=== PATIENT | female | born 1980 | race Hispanic/Latino ===

== ENCOUNTER 2022-10-27 12:14 | Inpatient (IN) | payer OTHER ==
[~2022-10-27] VITALS: Ht 170.2 cm; Wt 114.1 kg
[2022-10-27] MEDS ORDERED: DEXTROSE 5 %-0.45 % NACL 1,000 ML IV SCH (14:00)
[2022-10-27] MEDS ORDERED: HYDROMORPHONE 0.5 MG SYG (0.5MG/0.5ML) IVP PRN (14:00)
[2022-10-27 14:34] LABS: HEMATOCRIT 45.7 % (36-48); MEAN CORPUSCULAR HEMOGLOBIN 30.8 pg (27.0-33.0); MEAN CORPUSCULAR HGB CONC 33.5 g/dL (32.0-36.0); MEAN CORPUSCULAR VOLUME 92.1 fL (79-99); PLATELET COUNT (AUTO) 403 K/uL (130-400); RED BLOOD CELL COUNT(AUTO) 4.96 MIL/uL (4.00-5.50); RED CELL DISTRIBUTION WIDTH 12.9 % (11.0-15.5); WHITE BLOOD COUNT (AUTO) 6.8 K/uL (4.8-10.8)
[2022-10-27 14:37] LABS: APPEARANCE,URINE CLEAR (CLEAR); BILIRUBIN,URINE NEGATIVE (NEGATIVE); COLOR,URINE LIGHT-YELLOW (YELLOW); GLUCOSE, URINE (UA) NEGATIVE (NEGATIVE); KETONES,URINE NEGATIVE (NEGATIVE); LEUKOCYTE ESTERASE ,URINE NEGATIVE Leu/uL (NEGATIVE); NITRATE,URINE NEGATIVE (NEGATIVE); OCCULT BLOOD,URINE NEGATIVE (NEGATIVE); PROTEIN,URINE NEGATIVE (NEGATIVE); UROBILINOGEN,URINE 0.2 mg/dL (0.2-1.0)
[2022-10-27 14:38] LABS: ADD UA MICROSCOPIC NO
[2022-10-27 14:38] LABS: CREATININE 0.6 mg/dL (0.5-1.5); POTASSIUM 4.6 mmol/L (3.5-5.1)
[2022-10-27 14:40] LABS: BILIRUBIN,TOTAL 0.5 mg/dL (0.2-1.0); TOTAL PROTEIN, SERUM 7.7 g/dL (6.0-8.3)
[2022-10-27 14:59] LABS: EOSINOPHILS % (MANUAL) 2 % (1-6); LYMPHOCYTES % (MANUAL) 27 % (22-44); MAN.DIFF COMMENT-IMPRESSION MANUAL DIFFERENTIAL; MONOCYTES % (MANUAL) 7 % (2-9); PLATELET MORPHOLOGY COMMENT SLIGHT INCREASED; REACTIVE LYMPHOCYTES 2 % (0-0); SEGMENTED NEUTROPHILS % 62 % (40-70); TOTAL CELLS COUNTED 100
[2022-10-27] MEDS: LEVOFLOXACIN 750 MG/D5W 150ML BAG IV SCH (15:15)
[2022-10-27] MEDS ORDERED: IOHEXOL 350 MG/ML 100ML INFUS..BTL IV ONE (16:22)
[2022-10-27] MEDS ORDERED: MAGNESIUM HYDROXIDE 30 ML/UDCUP PO SCH (18:30)
[2022-10-27] MEDS ORDERED: LACTULOSE 20 GM/30 ML UDCUP PO ONE (18:30)
[2022-10-27] MEDS ORDERED: BISACODYL 10 MG SUPP.RECT RC ONE (18:30)
[2022-10-27 22:50] VITALS: O2SAT 97
[2022-10-27 23:00] VITALS: BP 133/81; PULSE 74; RESP 19
[2022-10-28 04:00] VITALS: BP 131/77; PULSE 62; RESP 18
[2022-10-28 07:35] VITALS: O2SAT 98
[2022-10-28 08:00] VITALS: BP 137/89; PULSE 59; RESP 18
[2022-10-28] MEDS: LEVOFLOXACIN 750 MG/D5W 150ML BAG IV SCH (14:24)
[2022-10-28 16:00] VITALS: BP 142/78; PULSE 74; RESP 18
== END 2022-10-28 18:00 | disposition home or self-care (01) | DRG 395 ==
LOC: EDH 12:14 → DIRECT 12:15 → UNDOADMIN 13:19 → 3BH 22:50 → DIRECT 22:50
PROVIDERS: ADMIT Internal Medicine; ATTEND Internal Medicine
DX: K37 Unspecified appendicitis (principal); K56.41 Fecal impaction; I10 Essential (primary) hypertension
CPT/HCPCS: 36415; 74178; 80053; 81003; 81025; 85025; G0378; J1956; J7042; Q9967